=== PATIENT | female | born 1935 | race Caucasian/White ===

== ENCOUNTER 2017-09-23 16:34 | Emergency (ER) | payer OTHER, MEDICARE ==
[~2017-09-23] VITALS: Ht 157.5 cm; Wt 49.9 kg
[2017-09-23 16:40] VITALS: BP 124/53
[2017-09-23 16:59] LABS: ABSOLUTE BASOPHIL COUNT 0 /CUMM (0.0-0.2); ABSOLUTE EOSINOPHIL COUNT 0.1 /CUMM (0.0-0.7); ABSOLUTE GRANULOCYTE CT 7.8 /CUMM (1.4-6.5); ABSOLUTE LYMPH COUNT 1.7 /CUMM (1.2-3.4); ABSOLUTE MONOCYTE COUNT 0.9 /CUMM (0.10-0.60); BASOPHIL % 0.2 % (0.0-2.0); EOSINOPHIL % 0.9 % (0-5); HEMATOCRIT 27.2 % (37-47); MEAN CORPUSCULAR HGB 31.4 PG (27.0-31.0); MEAN CORPUSCULAR HGB CONC 33.8 G/DL (33.0-37.0); MEAN CORPUSCULAR VOLUME 93.1 FL (81.0-99.0); PLATELET COUNT 362 /CUMM (130-400); RBC DISTRIBUTION WIDTH 18.4 % (11.5-14.5); RED BLOOD CELL CT 2.93 /CUMM (4.20-5.40); WHITE BLOOD CELL COUNT 10.5 /CUMM (4.8-10.8)
--- NOTE | 2017-09-23 18:12 | ED GENERAL ADULT ---
History of Present Illness General Chief Complaint: General Adult Stated Complaint: BLACK STOOLS Source: patient, family, old records Exam Limitations: no limitations Vital Signs & Intake/Output Vital Signs & Intake/Output Vital Signs Date Time Temp Pulse Resp B/P B/P Pulse O2 O2 Flow FiO2 Mean Ox Delivery Rate 09/23 1827 96 Room Air Room Air 09/23 1640 98.6 86 20 124/53 96 Room Air Allergies Coded Allergies: No Known Allergies (09/23/17) Triage Note: PT TO ED WITH DAUGHTER FOR BLACK STOOLS SINCE YESTERDAY. DAUGHTER STATES PT IS S/P LEFT HIP FRACTURE WITH LISA PLACEMENT ABOUT 6 WEEKS AGO. PT HAS BEEN IN REHAB. WAS STARTED ON COUMADIN 5MG 1.5 WEEKS AGO FOR DVT'S, PT ALSO TAKES PO IRON. DAUGHTER NOTICED BLACK STOOLS YESTERDAY. Triage Nurses Notes Reviewed? yes Onset: Gradual Duration: worse persistent since (2-3 days) Timing: recent history Injury Environment: home Severity: moderate No Modifying Factors: none HPI: Patient is an 82-year-old female with recent history of left hip fracture and repair done last month with subsequent development of left lower extremity DVT. Patient was then started on Coumadin approximately 1.5 weeks ago. Patient was home from rehabilitation for the past week, the daughter noticed dark stools over the past 2-3 days. According to the patient she's had darker stools for the past several weeks she was at rehabilitation. Denies any shortness of breath, chest pain or palpitations. No abdominal pain. Patient denies any urinary frequency urgency or dysuria. Patient denying any lightheadedness or dizziness. No headaches. No increased malaise. According to family memberspatient has been acting at baseline. Eating and drinking well. No complaints except for dark stool. He called the primary care physician yesterday and he recommended she come to the emergency department for evaluation (Chiqui Rodriguez) Past History Travel History Traveled to [place] past 21 day No Medical History Any Pertinent Medical History? see below for history Cardiovascular: hyperlipidemia Surgical History Surgical History: hip replacement (left) Psychosocial History What is your primary language Armenian Tobacco Use: Never used ETOH Use: denies use Illicit Drug Use: denies illicit drug use Family History Hx Contributory? No (Chiqui Rodriguez) Review of Systems Review of Systems Constitutional: Reports: no symptoms. Comments Review of systems: See HPI, All other systems negative. Constitutional, no chills fever or weight loss HEENT: No visual changes no sore throat no congestion Cardiovascular: No chest pain ,palpitation , orthopnea Skin, no jaundice no rashes Respiratory: No dyspnea cough sputum or hemoptysis GI: No nausea no vomiting : No dysuria No hematuria Muscle skeletal: no back pain, no neck pain, Neurologic: No numbness no confusion, no headaches Psych: No stress anxiety or depression,. Heme/endocrine: On Coumadin Immunology: No splenectomy or history of AIDS (Chiqui Rodriguez) Physical Exam Physical Exam General Appearance: well developed/nourished, no apparent distress, alert, awake , comfortable Comments: Well-developed well-nourished person in no acute distress HEENT: Pupils equally round and reactive to light and accommodation. Nose is atraumatic. Palate noted to ocular conjunctiva bilaterally. Neck: Normal inspection Back: Nontender Cardiovascular: Regular rate and rhythms no murmurs rubs or gallops, normal JVP Respiratory: Chest nontender. No respiratory distress.breath sounds clear to auscultation bilaterally Abdomen: Soft, nontender nondistended, no appreciable organomegaly. Normal bowel sounds. No ascites no rebound or guarding. Rectal: External hemorrhoids, nonthrombosed noted, brown stool, guaiac negative. Extremity: mild nonpitting edema noted in the left lower extremity, no calf tenderness to palpation, normal and equal pulses. Neuro: Alert oriented x3, motor sensory normal Skin: No appreciable rash on exposed skin, skin is warm and dry. Psych: Mood and affect is normal, memory and judgment is normal. Core Measures ACS in differential dx? No CVA/TIA Diagnosis: No Sepsis Present: No Sepsis Focused Exam Completed? No (Chiqui Rodriguez) Progress Differential Diagnoses I considered the following diagnoses in my evaluation of the patient: Residual DVT, GI bleed, hypocoagulable state, side effect from iron supplement Plan of Care: Orders Procedure Date/time Status Add-on Test (ER Only) 09/23 1812 Active PARTIAL THROMBOPLASTIN TIME 09/23 1648 Complete PROTHROMBIN TIME 09/23 1648 Complete COMPREHENSIVE METABOLIC PANEL 09/23 164 Complete CBC WITHOUT DIFFERENTIAL 09/23 1642 Complete Laboratory Tests 09/23/17 1648: Anion Gap 9, Estimated GFR > 60, BUN/Creatinine Ratio 34.3 H, Glucose 156 H, Calcium 9.1, Total Bilirubin 0.5, AST 18, ALT 21, Alkaline Phosphatase 117, Total Protein 7.0, Albumin 3.7, Globulin 3.3, Albumin/Globulin Ratio 1.1, PT 42.0 H, INR 3.80 H, APTT 37, CBC w Diff NO MAN DIFF REQ, RBC 2.93 L, MCV 93.1 , MCH 31.4 H, MCHC 33.8, RDW 18.4 H, MPV 6.0 L, Gran % 74.0, Lymphocytes % 16.4 L, Monocytes % 8.5, Eosinophils % 0.9, Basophils % 0.2, Absolute Granulocytes 7.8 H, Absolute Lymphocytes 1.7, Absolute Monocytes 0.9 H, Absolute Eosinophils 0.1, Absolute Basophils 0 Initial ED EKG: none Comments: 09/23/2017 6:58:20 PM dark stools likely related to iron supplementation. Guaiac was negative. H&H has been improving since labs were done 3 days ago. Patient educated on holding Coumadin as it was slightly elevated today to 3.8. She will resume tomorrow. d/w dr caldwell and he agrees with plan. (Chiqui Rodriguez) Departure Departure Time of Disposition: 1851 Disposition: HOME OR SELF CARE Condition: Stable Clinical Impression Primary Impression: Dark stools Secondary Impressions: Elevated INR Referrals: Unknown (PCP/Family) Additional Instructions: hold Coumadin tonight, resume tomorrow. Recheck him in a level on Wednesday. Follow-up with the primary care physician in the next 5-7 days. Resume all other medications as prescribed. Return for worsening symptoms or concerns. Departure Forms: Customer Survey General Discharge Information (Chiqui Rodriguez) PA/ACCOUNT MAINTENANCE REPRESENTATIVE Co-Sign Statement Statement: ED Attending supervision documentation- x I saw and evaluated the patient. I have also reviewed all the pertinent lab results and diagnostic results. I agree with the findings and the plan of care as documented in the PA's/ACCOUNT MAINTENANCE REPRESENTATIVE's documentation. [] I have reviewed the ED Record and agree with the PA's/ACCOUNT MAINTENANCE REPRESENTATIVE's documentation. [] Additions or exceptions (if any) to the PAs/ACCOUNT MAINTENANCE REPRESENTATIVE's note and plan are summarized below: [] (Byron Caldwell MD) Critical Care Note Critical Care Note Critical Care Time: non-applicable (Bertha JOHNS,Chiqui)
[2017-09-23 18:31] LABS: PTT 37 SEC (25-37)
== END 2017-09-23 19:06 ==
LOC: ERH 16:34
PROVIDERS: Emergency Medicine
DX: K92.1 Melena (principal); R79.1 Abnormal coagulation profile